=== PATIENT | female | born 2000 | race Two or more races ===

== ENCOUNTER 2022-04-03 07:03 | Day surgery (SDC) | payer BC ==
[~2022-04-03] VITALS: Ht 167.6 cm; Wt 68.0 kg
[2022-04-03] MEDS ORDERED: MIDAZOLAM HCL 2MG/2ML 2ml VIAL (1mg/ml) IV ONE (07:30)
[2022-04-03] MEDS ORDERED: fentaNYL CITRATE 100 MCG/2 ML VL IV ONE (07:30)
[2022-04-03] MEDS ORDERED: LIDOCAINE VISCOUS 2% 15ML UD PO ONE (07:30)
== END 2022-04-03 09:42 | disposition home or self-care (01) ==
LOC: CATH 07:03
PROVIDERS: ATTEND Internal Medicine
DX: Q23.1 Congenital insufficiency of aortic valve (principal); I34.1 Nonrheumatic mitral (valve) prolapse; Q21.0 Ventricular septal defect; Z82.49 Family history of ischemic heart disease and other diseases of the circulatory system; Z20.822 Contact with and (suspected) exposure to COVID-19
CPT/HCPCS: 93312; J2250; J3010; U0003; 99152